=== PATIENT | male | born 1995 ===

== ENCOUNTER 2020-07-04 14:16 | Emergency (ER) | payer SELFPAY ==
[2020-07-04 15:40] VITALS: BP 125/87
--- NOTE | 2020-07-04 16:23 | Emergency Department Report ---
Chief Complaint: Urogenital-Male Stated Complaint: STD Time Seen by Provider: 07/04/20 16:04 - HPI History of Present Illness: Patient is a 24-year-old male who presents to the emergency room complaints of concern for STD. he states that for a week he has had itching to the head of his penis and dysuria. He denies any penile discharge, abdominal pain, fever, nausea, vomiting, diarrhea, urinary retention, hematuria, pain or swelling in the testicles. He states he has a past medical history of chlamydia 4 years ago which she was treated for. He states he is sexually active without protection. He denies any medication allergies. 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, normal testicular lie, no scrotal edema, no testicular tenderness palpation, there is no significant edema of the glans penis, he is able to retract the foreskin, no signs of any drainage or discharge around the glans penis, no signs of phimosis or paraphimosis, no obvious lesions, normal cremasteric reflex A&O x4, no focal neuro deficit skin is warm, dry, intact Patient is presenting with concern for STD His symptoms do likely appear consistent with an STD this hospital policy does not test or treat for uncomplicated male STDs as this is not an emergent life threatening medical condition at this time Patient will be referred to a clinic and the health department Discussed the importance of having a full STD panel and having any partner tested and treated as well and avoiding sexual intercourse He verbalized understanding Discussed return precautions Medical screening examination performed and there is no threat to life or limb this time - Exam Vital Signs: Vital Signs 07/04/20 15:36 Temperature 98.4 F Pulse Rate 61 Respiratory 18 Rate Blood Pressure 125/87 O2 Sat by Pulse 99 Oximetry MSE screening note: Focused history and physical exam performed. Due to findings the following was ordered: ED Disposition for MSE Clinical Impression: Concern about STD in male without diagnosis Disposition: Z-07 MED SCREENING EXAM-LEFT Is pt being admited?: No Does the pt Need Aspirin: No Condition: Stable Instructions: Safe Sex Additional Instructions: please follow up with a clinic or health department for full STD panel. have any partner tested and treated as well. avoid sexual intercourse. return to the emergency room for any new or worsening symptoms. walk in clinic: [facility] Address: [address] [place] [address], [place] [address] [facility] - [facility]-5 Days Time of Disposition: 16:22 Print Language: MALIAN
== END 2020-07-04 17:17 | disposition left against medical advice (07) ==
LOC: ED 14:16
DX: A64 Unspecified sexually transmitted disease (principal); Z53.21 Procedure and treatment not carried out due to patient leaving prior to being seen by health care provider